=== PATIENT | male | born 1950 | race African-American/Black ===

== ENCOUNTER 2019-08-26 13:22 | Outpatient (CLI) | payer MEDICARE, BC ==
[~2019-08-26 13:22] MED LIST: Iopamidol-370 76% 500 ML 1 ML ONE
--- NOTE | 2019-08-26 15:06 | CT ---
CT of the abdomen with and without contrast INDICATION: Left renal lesion suspicious for malignancy COMPARISON: CTA of the abdomen dated April 08, 2019 and a renal ultrasound dated April 03, 2019 TECHNIQUE: Axial noncontrast CT the abdomen, nephrographic phase axial CT the abdomen and delayed pha se axial CT of the abdomen were obtained. Sagittal and coronal reformats were constructed from the delayed phase imaging series. FINDINGS: Kidneys: There is a 2 cm, moderately hyperdense lesion seen involving the mid to lower left kidney, w ithin the renal sinus, that demonstrates enhancement on the postcontrast series suspicious for a solid renal lesion. There is a 3.8 mm nonobstructing calculus within the inferior pole the left kidn ey. There is a small exophytic mildly hyperdense lesion involving the superior pole of the right kidney measuring 1 cm most consistent with a proteinaceous cyst. Additional smaller subcentimeter cys t is seen within the superior pole right kidney measuring 6 mm. Liver: No suspicious abnormality. Gallbladder: Normal. Pancreas: Normal. Adrenal glands: Normal. Spleen: Normal. Retroperitoneum: No enlarged lymph nodes. Vasculature: There are moderate vascular calcifications seen involving the visualized vasculature. Visualized small and large bowel: Normal. Soft tissues: Normal. Osseous structures: No acute osseous abnormality. There is scattered degenerative and osteoarthritic change present. IMPRESSION: 1. 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 2. Hyperdense cyst involving the superior pole of the right kidney. Small simple cyst also involving the superior pole of the right kidney.
== END 2019-08-26 13:23 | disposition home or self-care (01) ==
LOC: BICCT 13:22
PROVIDERS: ATTEND Urology
DX: N28.89 Other specified disorders of kidney and ureter (principal); N28.1 Cyst of kidney, acquired
CPT/HCPCS: 74170; 82565; Q9967

== ENCOUNTER 2022-12-20 11:28 | Emergency (ER) | payer MEDICARE ==
[2022-12-20 12:17] LABS: #Monocytes 0.4 thou/uL (0.11-0.59); #Neutrophils 5.3 thou/uL (1.40-6.50); %Basophils 0.6 % (0.0-1.0); %Eosinophils 0.4 % (0.0-10.0); %Lymphocytes 14.4 % (21.0-51.0); %Monocytes 5.4 % (0.0-10.0); %Neutrophils 78.6 % (42.0-75.0); Hematocrit 41.1 % (42.0-52.0); Mean Corpuscular HGB CONC 31.6 g/dL (32.0-36.0); Mean Corpuscular Hemoglobin 25.5 pg (27.0-31.0); Mean Corpuscular Volume 80.6 fl (78.0-98.0); Mean Platelet Volume 9.6 fL (7.4-10.4); Platelet Count 223 10x3/uL (130-400); White Blood Cell (WBC) Count 6.8 10x3/uL (4.8-10.8)
[2022-12-20 12:42] LABS: ALT (SGPT) 11 U/L (8-55); AST (SGOT) 10 U/L (5-34); Albumin 4.5 g/dL (3.4-4.8); Alkaline Phosphatase 44 U/L (40-110); Anion Gap 13 mmol/L (10-20); BUN (Urea Nitrogen) 24 mg/dL (8.4-25.7); Bilirubin, Total 0.3 mg/dL (0.2-1.2); Calc. Creatinine Clearance 0 mL/min (70-130); Calcium 9.7 mg/dL (7.8-10.44); Carbon Dioxide 25 mmol/L (23-31); Chloride 101 mmol/L (98-107); Estimated GFR 59; Globulin 2.7 g/dL (2.4-3.5); Glucose 200 mg/dL (83-110); Potassium 4.4 mmol/L (3.5-5.1); Protein, Total 7.2 g/dL (5.8-8.1); Sodium 135 mmol/L (136-145)
[2022-12-20] MEDS ORDERED: Sulfameth/Trimethoprim DS 800-160mg TAB ONE (15:03)
== END 2022-12-20 15:18 | disposition home or self-care (01) ==
LOC: ERS 11:28
DX: L03.116 Cellulitis of left lower limb (principal); E11.9 Type 2 diabetes mellitus without complications; F17.210 Nicotine dependence, cigarettes, uncomplicated
CPT/HCPCS: 80053; 83605; 85025; 86140